=== PATIENT | female | born 1945 | race Caucasian/White ===

== ENCOUNTER 2021-08-02 15:12 | Inpatient (IN) | payer MEDICARE, OTHER ==
[~2021-08-02] VITALS: Ht 157.5 cm; Wt 71.7 kg
--- NOTE | 2021-08-02 15:40 | NUR ---
Patient ambulatory accompanied by daughter, complaints of fall today, pain on left shoulder and neck 12/27. No visible injuries/wound seen. Denies nausea/vomiting. Not in distress.
[2021-08-02] MEDS ORDERED: LEVO100T10 PO (15:41)
[2021-08-02] MEDS ORDERED: AMLO10TA59 PO (15:41)
[2021-08-02] MEDS ORDERED: ATENOLOL (15:42)
--- NOTE | 2021-08-02 15:45 | NUR ---
MD at bedside, medical screening exam in process.
[2021-08-02] MEDS ORDERED: ACETAMINOPHEN 325 MG TABLET ONE (15:56)
[2021-08-02] MEDS ORDERED: MORPHINE SULFATE 4 MG/1 ML DISP.SYRIN ONE ×2 (15:57→17:26)
[2021-08-02] MEDS ORDERED: ACETAMINOPHEN 325 MG TABLET PO ONE (16:00)
[2021-08-02] MEDS ORDERED: MORPHINE SULFATE 4 MG/1 ML DISP.SYRIN IM ONE (16:00)
--- NOTE | 2021-08-02 16:35 | NUR ---
MD Diaz at bedside, ongoing assessment and discussion RE admission.
--- NOTE | 2021-08-02 16:40 | NUR ---
MD tolliver was informed.
[2021-08-02] MEDS ORDERED: FENTANYL CITRATE 100 MCG/2 ML AMPUL IV ONE (16:45)
[2021-08-02 16:56] LABS: HEMATOCRIT 43.4 % (31.2-41.9); MEAN CORPUSCULAR VOLUME 85.9 fL (75.5-95.3); PLATELET COUNT (AUTO) 165 K/uL (179-408)
[2021-08-02] MEDS ORDERED: FENTANYL CITRATE 100 MCG/2 ML AMPUL ONE (16:56)
[2021-08-02 17:02] LABS: CREATININE 1.1 mg/dL (0.6-1.3); POTASSIUM 4.1 mmol/L (3.5-5.1)
--- NOTE | 2021-08-02 17:10 | NUR ---
Cut off pt's shirt and bra, family aware. Placed pt in hospital gown.
[2021-08-02] MEDS ORDERED: HYDROCODONE/APAP 5-325MG TABLET PO PRN (17:15)
[2021-08-02] MEDS ORDERED: MORPHINE SULFATE 2 MG/1 ML DISP.SYRIN IV PRN ×2 (17:15→18:45)
[2021-08-02] MEDS ORDERED: MORPHINE SULFATE 4 MG/1 ML DISP.SYRIN IV ONE (17:15)
[2021-08-02] MEDS ORDERED: ONDANSETRON 4 MG/2 ML VIAL IV PRN (17:15)
[2021-08-02] MEDS ORDERED: ACETAMINOPHEN 325 MG TABLET PO PRN (17:15)
[2021-08-02] MEDS ORDERED: MAGNESIUM HYDROXIDE 30 ML LIQUID UDC PO PRN ×2 (17:15→18:00)
[2021-08-02] MEDS ORDERED: ALPRAZOLAM 0.5 MG TABLET PO PRN (17:15)
--- NOTE | 2021-08-02 17:47 | NUR ---
Called for bed room 315 [facility].
--- NOTE | 2021-08-02 18:05 | NUR ---
Report called to NATASHA Kelley.
[2021-08-02] MEDS ORDERED: IV 1/2NS 1000 ML 1,000 ML IV PRN (18:15)
--- NOTE | 2021-08-02 18:17 | NUR ---
Patient still at CT scan, spoke to leinor said that he will transfer the patient to room [address] [place] [address] Admission papers gave to charge nurse in med surg unit. Patient recent vitals; BP-109/80 CA-51 RR-18 T-97F SPO2-98% RA PA-08/26.
--- NOTE | 2021-08-02 18:30 | NUR ---
pt brought up to room 315, family at bedside. pt on room air, no signs of distress, reports of pain to the left shoulder with fracture and possible fracture to the right, pending CT results. pt is A/Ox4 slovenian speaking, admitted to [facility]. pt has pimentel in place, IV on the right AC 20g patent and intact. bed low and locked, call light within reach, will continue to monitor.
--- NOTE | 2021-08-02 18:53 | NUR ---
photographic technician at bedside, will continue to monitor.
[2021-08-02 18:54] VITALS: BP 141/52
[2021-08-02] MEDS ORDERED: ALPR0.5T8 PO (18:56)
--- NOTE | 2021-08-02 19:00 | NUR ---
Received patient in bed, Humberto CESPEDES speaking with daughter Dakota at bedside. Pt's daughter will be sleeping overnight, rag room supervisor notified and acknowledged. Pt complains of shoulder pain of 8/10, PRN, medication will be given. With IV access patent and intact, started on 1/2 NS at 70 cc/hr. On room air. Patient denies chest pain, dizziness or SOB. No F/C in place. Pt has BRP, with minimum 1 person assistance. Per, Raul Hong will speak with patient and daughter for scheduled surgery tomorrow, consent has not been signed. Safety precautions in place. Will continue to monitor.
[2021-08-02] MEDS: OXYCODONE/APAP 5-325 MG TABLET PO PRN (19:57)
[2021-08-02 20:08] VITALS: BP 138/45
[2021-08-02] MEDS ORDERED: ZOLPIDEM 5 MG TABLET PO SCH (21:00)
--- NOTE | 2021-08-02 21:00 | NUR ---
Notified Dr. Carter that he hasn't seen patient and consent hasn't been signed. Family will need to speak to him.
--- NOTE | 2021-08-02 21:00 | NUR ---
Called Dr. Carter's office, paged him, He picked up and spoke to patient's daughter, Dakota and explained surgery to be done at 10am tomorrow. Scheduled surgery is Left Shoulder Arthroplasty. Procedure consent and blood transfusion consent have been signed and attached to chart.
--- NOTE | 2021-08-02 21:30 | NUR ---
No reply from Raul DAMIAN. Called his office. Addendum: 08/03/21 at 9810 by LEVY MELENDREZ RN Incorrect record. Please disregard.
--- NOTE | 2021-08-02 21:35 | NUR ---
Collected urine specimen and sent to lab.
[2021-08-02 23:34] LABS: *BLOOD, URINE NEGATIVE (NEGATIVE); *CLARITY,URINE CLEAR (CLEAR); *COLOR,URINE YELLOW (YELLOW); *KETONES,URINE 1+ (NEGATIVE); *UROBILINOGEN,URINE 0.2 E.U./dl (NORMAL); LEUKOCYTE ESTERASE ,URINE TRACE (NEGATIVE); NITRITE, URINE NEGATIVE (NEGATIVE); PH,URINE 5.5 (5.0-8.0); UGLUCOSE NEGATIVE (NEGATIVE)
[2021-08-02 23:39] LABS: *BILIRUBIN,URIN 1+ (NEGATIVE)
[2021-08-03 04:26] VITALS: BP 133/45
--- NOTE | 2021-08-03 04:26 | NUR ---
Patient complained of pain located at the left shoulder, PRN Morphine 2mg/1ml, given as ordered. Will continue to monitor.
--- NOTE | 2021-08-03 05:16 | NUR ---
Patient still complained of pain, will give PRN Percocet, as ordered. Will continue to monitor.
[2021-08-03] MEDS: OXYCODONE/APAP 5-325 MG TABLET PO PRN (05:18)
[2021-08-03 05:33] LABS: MEAN CORPUSCULAR HEMOGLOBIN 29.6 uug (24.7-32.8)
[2021-08-03 05:38] LABS: CARBON DIOXIDE 26 mmol/L (21-32); CHLORIDE 107 mmol/L (98-107); CREATININE 1.2 mg/dL (0.6-1.3); GLUCOSE 156 mg/dL (74-106); POTASSIUM 3.6 mmol/L (3.5-5.1); UREA NITROGEN, BLOOD 20 mg/dL (7-18)
[2021-08-03 05:40] LABS: HEMATOCRIT 37.9 % (31.2-41.9); MEAN CORPUSCULAR VOLUME 86.6 fL (75.5-95.3); PLATELET COUNT (AUTO) 131 K/uL (179-408)
[2021-08-03 05:44] LABS: ALANINE AMINOTRANSFERASE 37 U/L (14-59); ALKALINE PHOSPHATASE 85 U/L (50-136); ASPARTATE AMINOTRANSFERASE 15 U/L (15-37); BILIRUBIN,TOTAL 2.7 mg/dL (0.2-1.0); PHOSPHOROUS 3.3 mg/dL (2.5-4.9); TOTAL PROTEIN, SERUM 5.9 g/dL (6.4-8.2)
--- NOTE | 2021-08-03 06:35 | NUR ---
Patient slept intermittently through the night. Pre-operative checklist done. IV access patent and intact, running 1/2 NS running at 70 cc/hr. Patient's pain reduced, no acute distress noted at this time. Safety precautions maintained. Will endorse to day shift accordingly.
[2021-08-03 07:28] LABS: BACTERIA,URINE NONE SEEN /HPF (NONE SEEN); RBC,URINE NONE SEEN /HPF (0-3); SQUAMOUS EPITHELIAL CELL,UR NONE SEEN /HPF (NONE SEEN)
[2021-08-03 07:29] LABS: MUCUS,URINE FEW /LPF (0-FEW)
[2021-08-03 07:41] LABS: URINE AMORPHOUS URATE FEW /HPF
[2021-08-03] MEDS ORDERED: VANCOMYCIN 1000 MG VIAL ONE (08:51)
[2021-08-03 08:54] VITALS: BP 134/43
[2021-08-03] MEDS: AMLODIPINE 10 MG TABLET PO SCH (08:55)
[2021-08-03] MEDS ORDERED: ATENOLOL 50 MG TABLET PO SCH ×2 (09:00)
[2021-08-03] MEDS ORDERED: FENTANYL CITRATE 100 MCG/2 ML AMPUL ONE (09:18)
[2021-08-03] MEDS ORDERED: HYDROMORPHONE 2 MG/1 ML DISP.SYRIN ONE (09:19)
[2021-08-03] MEDS ORDERED: MIDAZOLAM HCL 2 MG/2 ML VIAL ONE (09:19)
[2021-08-03] MEDS ORDERED: ROCURONIUM BROMIDE 50 MG/5 ML VIAL ONE (09:20)
[2021-08-03] MEDS ORDERED: CEFAZOLIN 1 G VIAL ONE (09:24)
--- NOTE | 2021-08-03 09:45 | NUR ---
TO SURGERY VIA BED. FAMILY AT BEDSIDE. DR. YEAGER HERE TO CLEAR PATIENT FOR SURGERY.
[2021-08-03] MEDS ORDERED: ALPRAZOLAM 0.5 MG TABLET PO PRN (12:00)
[2021-08-03] MEDS ORDERED: ATOR20TA PO (12:06)
[2021-08-03] MEDS ORDERED: GLYCOPYRROLATE 0.2 MG/ML VIAL IJ ONE (12:53)
[2021-08-03] MEDS ORDERED: METOCLOPRAMIDE HCL 10 MG/2 ML VIAL IV ONE (12:53)
[2021-08-03] MEDS ORDERED: ONDANSETRON 4 MG/2 ML VIAL IV ONE (12:53)
[2021-08-03] MEDS ORDERED: NEOSTIGMINE METHYLSULFATE 10 MG/10 ML VIAL IM ONE (12:53)
[2021-08-03] MEDS ORDERED: SEVOFLURANE 250 ML BOTTLE IH ONE (12:53)
[2021-08-03] MEDS ORDERED: LIDOCAINE-MPF 2% 5 ML VIAL IJ ONE (12:53)
[2021-08-03] MEDS ORDERED: CEFAZOLIN 1 G VIAL IM ONE (12:53)
[2021-08-03] MEDS ORDERED: PROPOFOL 200 MG/20 ML BOTTLE IV ONE (12:53)
[2021-08-03] MEDS ORDERED: HYDROCODONE/APAP 10-325 MG TABLET PO PRN (14:15)
--- NOTE | 2021-08-03 14:35 | NUR ---
RECEIVED FROM . A&O X 3. REQUESTING MED IV FOR PAIN. WILL GIVE MED. RACHEL. FAMILY AT BEDSIDE.
[2021-08-03] MEDS: MORPHINE SULFATE 4 MG/1 ML DISP.SYRIN IV PRN ×2 (14:36→17:51)
[2021-08-03] MEDS: POTASSIUM CHLORIDE 20 MEQ in IV D5 1/2 NS 1000 ML 1,000 ML IV PRN (14:37)
[2021-08-03] MEDS: CEFAZOLIN 1 G in IV DEXTROSE 5% 50 ML IV SCH (18:23)
[2021-08-03] MEDS ORDERED: OXYCODONE/APAP 5-325 MG TABLET PO PRN (19:00)
[2021-08-03] MEDS ORDERED: OXYCODONE/APAP 5-325 MG TABLET PO ONE (19:45)
--- NOTE | 2021-08-03 19:45 | NUR ---
Patient resting in bed . Awake alertx4.s/p left shoulder surgery with dressing clean and dry. Left arm with sling on.Able to wiggle fingers. Ice pack applied on the surgical site.O2 at 2LPM via NC .O2 sat at 98 %.Iv patent and intact on right FA 20g patent and intact with IVF infusing well.NSr on tele. Daughter at bedside.Call light with in reach.
[2021-08-03] MEDS: ATORVASTATIN 20 MG TABLET PO SCH (20:30)
[2021-08-03 20:44] VITALS: BP 169/57
[2021-08-03] MEDS ORDERED: ENOXAPARIN SODIUM 40 MG/0.4 ML DISP.SYRIN SQ SCH (21:00)
[2021-08-03 21:45] VITALS: BP 150/59
[2021-08-04] MEDS: CEFAZOLIN 1 G in IV DEXTROSE 5% 50 ML IV SCH (02:48)
[2021-08-04 04:00] VITALS: BP 134/54
[2021-08-04] MEDS: LEVOTHYROXINE SODIUM 100 MCG TABLET PO SCH (06:12)
[2021-08-04] MEDS: POTASSIUM CHLORIDE 20 MEQ in IV D5 1/2 NS 1000 ML 1,000 ML IV PRN (06:15)
[2021-08-04 07:14] LABS: HEMATOCRIT 33.6 % (31.2-41.9); MEAN CORPUSCULAR HEMOGLOBIN 29.9 uug (24.7-32.8); MEAN CORPUSCULAR VOLUME 87.1 fL (75.5-95.3); PLATELET COUNT (AUTO) 115 K/uL (179-408)
--- NOTE | 2021-08-04 07:20 | NUR ---
AWAKE ALERT AND ORIENTED NO S/S OF PAIN OR DISCOMFORTS AT THIS TIME LEFT SHOULDER SLING IS INTACT WITH ADEQUATE CIRCULATION AT THIS TIME ON O2 ON AND OFF PATIENT IS NOT WANTING TO USE O2 SATS HAS BEEN ADEQUATE TELE IS SR CALL LIGHTS AND PERSONAL BELONGINGS ARE WITHIN EASY REACH WILL CONTINUE TO OBSERVE
[2021-08-04 07:39] LABS: BILIRUBIN,DIRECT 0.6 mg/dL (0.0-0.2); CREATININE 1.1 mg/dL (0.6-1.3); POTASSIUM 3.7 mmol/L (3.5-5.1); TOTAL PROTEIN, SERUM 5.7 g/dL (6.4-8.2)
[2021-08-04] MEDS: ATENOLOL 25 MG TABLET PO SCH (09:10)
[2021-08-04] MEDS: AMLODIPINE 10 MG TABLET PO SCH (09:12)
[2021-08-04] MEDS: ENOXAPARIN SODIUM 40 MG/0.4 ML DISP.SYRIN SQ SCH (09:13)
[2021-08-04] MEDS: MIRALAX 17 GM POWD.PACK PO SCH (09:18)
[2021-08-04] MEDS: DOCUSATE SODIUM 100 MG CAPSULE PO SCH ×2 (09:18→16:00)
[2021-08-04] MEDS: OXYCODONE/APAP 5-325 MG TABLET PO PRN ×3 (09:19→21:12)
--- NOTE | 2021-08-04 09:20 | NUR ---
PATIENT C/O PAIN LEFT ARM MEDICATED WITH PERCOCET ORDERED MADE COMFORTABLE PATIENT IS FOR PHYSICAL THERAPY IN A LITTLE WHILE ORDERED.WILL CONTINUE BTO OBSERVE.
--- NOTE | 2021-08-04 11:30 | NUR ---
SEEN BY THE PHYSICAL THERAPY FOR AMBULATION WITH [facility].STATED FEELS COMFORTABLE AT THIS TIME.
[2021-08-04 12:00] VITALS: BP_SYST 118; BP_SYST 119; BP_DIAS 46; BP_DIAS 65
--- NOTE | 2021-08-04 15:55 | NUR ---
C/O PAIN LEFT ARM MEDICATED WITH PERCOCET ORDERED MADE COMFORTABLE CIRCULATION REMAINS ADEQUATE WILL CONTINUE TO OBSERVE.
[2021-08-04 16:51] VITALS: BP 122/78
--- NOTE | 2021-08-04 19:40 | NUR ---
Patient awake alert, family at bedside, no sob no chest pain, no complain of pain, left arm on the sling with dressing intact, tele monitor sinus rhythm, cont to monitor.
[2021-08-04 20:00] VITALS: BP 139/56
[2021-08-04] MEDS: ATORVASTATIN 20 MG TABLET PO SCH (21:12)
--- NOTE | 2021-08-04 23:15 | NUR ---
Patient unable to sleep, restless, family request for anxiety meds/sleep, given xanax 0.5mg po cont to monitor.
[2021-08-05] MEDS: ACETAMINOPHEN 325 MG TABLET PO PRN (00:21)
--- NOTE | 2021-08-05 00:21 | NUR ---
Patient has low grade temp 100.7, hr 110, given tylenol 650mg po plus cooling measure, ice pack on left should also, put oxygen at 2lpm for assist, sat 94 cont to monitor.
--- NOTE | 2021-08-05 01:50 | NUR ---
Patient asleep, temp 99.6, monitor sinus rhythm 87, cont to monitor.
[2021-08-05 04:00] VITALS: BP 128/53
[2021-08-05] MEDS: LEVOTHYROXINE SODIUM 100 MCG TABLET PO SCH (06:36)
--- NOTE | 2021-08-05 07:06 | NUR ---
Patient awake, verbally responsive, tele monitor sinus rhythm, no complain of pain, afebrile, ice pack place on left shoulder, Left shoulder with sling, family at bedside, cont to monitor.
--- NOTE | 2021-08-05 07:30 | NUR ---
PATIENT SEEN AND EXAMINED BY DR ESCAMILLA WITH NEW ORDERS AND NOTED SHE IS ALERT AND ORIENTED WITH SOME LANGUAGE BARRIERS HAS FAMILY MEMBER ASSISTING NEEDED.LEFT ARM WITH DRESSING AND SLING INTACT WITH ADEQUATE CIRCULATION CALL LIGHT AND PERSOANL BELONGINGS ARE WITHIN EASY REach at this time will continue to observe.
[2021-08-05] MEDS ORDERED: LACTULOSE 20 G/30 ML LIQUID UDC PO ONE (08:00)
[2021-08-05 08:44] LABS: HEMATOCRIT 32.9 % (31.2-41.9); MEAN CORPUSCULAR VOLUME 87.1 fL (75.5-95.3); PLATELET COUNT (AUTO) 110 K/uL (179-408)
[2021-08-05] MEDS: MIRALAX 17 GM POWD.PACK PO SCH (08:50)
[2021-08-05] MEDS: DOCUSATE SODIUM 100 MG CAPSULE PO SCH ×2 (08:50→16:30)
[2021-08-05] MEDS: ATENOLOL 25 MG TABLET PO SCH (08:51)
[2021-08-05] MEDS: AMLODIPINE 10 MG TABLET PO SCH (08:51)
[2021-08-05] MEDS: OXYCODONE/APAP 5-325 MG TABLET PO PRN ×2 (08:59→19:02)
--- NOTE | 2021-08-05 09:00 | NUR ---
PATIENT PRE MEDICATED WITH PERCOCET FOR PHYSICAL THERAPY WHICH IS ABOUT TO START IN ABOUT ONE HOUR WILL CHECK EFFECTIVENESS.
[2021-08-05 09:01] LABS: POTASSIUM 3.9 mmol/L (3.5-5.1)
[2021-08-05] MEDS: ENOXAPARIN SODIUM 40 MG/0.4 ML DISP.SYRIN SQ SCH (09:13)
[2021-08-05 09:16] LABS: BILIRUBIN,TOTAL 5.9 mg/dL (0.2-1.0); TOTAL PROTEIN, SERUM 5.6 g/dL (6.4-8.2)
[2021-08-05 09:24] LABS: THYROID STIMULATING HORMONE 0.263 mIU/mL (0.358-3.740)
[2021-08-05 10:37] LABS: *BILIRUBIN,URIN 1+ (NEGATIVE); *BLOOD, URINE NEGATIVE (NEGATIVE); *CLARITY,URINE CLEAR (CLEAR); *COLOR,URINE YELLOW (YELLOW); *KETONES,URINE NEGATIVE (NEGATIVE); *UROBILINOGEN,URINE 0.2 E.U./dl (NORMAL); LEUKOCYTE ESTERASE ,URINE TRACE (NEGATIVE); NITRITE, URINE POSITIVE (NEGATIVE); UGLUCOSE NEGATIVE (NEGATIVE)
[2021-08-05 11:40] VITALS: BP 105/45
--- NOTE | 2021-08-05 12:00 | NUR ---
IV ANTIBIOTICS STARTED AT THIS TIME ORDERED WITH NO ADVERSE OR ALLERGIC REACTIONS AT THIS TIME LEFT ARM WITH SLING INTACT WITH ADEQUATE CIRCULATION MADE COMFORTABLE WILL CONTINUE TO OBSERVE
[2021-08-05] MEDS: CEFTRIAXONE 1 G in IV DEXTROSE 5% 50 ML IV SCH (12:33)
[2021-08-05 15:02] LABS: RBC,URINE 0-3 /HPF (0-3)
[2021-08-05 15:03] LABS: BACTERIA,URINE FEW /HPF (NONE SEEN); SQUAMOUS EPITHELIAL CELL,UR FEW /HPF (NONE SEEN)
[2021-08-05 15:04] LABS: CALCIUM OXALATE CRYSTALS,UR FEW /HPF (NONE SEEN)
[2021-08-05 16:00] VITALS: BP 114/46
--- NOTE | 2021-08-05 18:00 | NUR ---
PATIENT FINALLY HAD A BOWEL MOVEMENT AFTER ALL THE LAXATIVES STATED FEELS BETTER AT THIS TIME.
[2021-08-05] MEDS ORDERED: NALOXONE HCL 0.4 MG/ML AMPUL IV PRN (19:45)
[2021-08-05 20:00] VITALS: BP_SYST 131; BP_SYST 174; BP_DIAS 52; BP_DIAS 69
--- NOTE | 2021-08-05 20:00 | NUR ---
Patient alert, no sob no chest pain, tele monitor sinus rhythm, room air sat 96%, patient has elevated temp 100.3 orally, given cooling measure, received Percocet at earlier, family at bedside. Patient was kept comfortable, cont to monitor.
--- NOTE | 2021-08-05 20:45 | NUR ---
Patient awake, complain of uncomfortable pain on left shoulder, continue ice pack placed on left shoulder for comfort and pain. recheck bp 131/52, temp 100.3, vomit clear liquid fluids after family gave water, will medicate for nausea and vomiting. cont to monitor. Patient on IV abx for UTI, rendered good keith care, no s/s of distress. cont to monitor.
[2021-08-05] MEDS: ONDANSETRON 4 MG/2 ML VIAL IV PRN (21:08)
--- NOTE | 2021-08-05 21:10 | NUR ---
Patient has episode of vomiting approx 100cc vomitus, clear liquid, given Zofran IV for nausea and vomiting, continue cooling measures, no s/s of distress.
[2021-08-05] MEDS: ATORVASTATIN 20 MG TABLET PO SCH (22:13)
[2021-08-05] MEDS: OXYCODONE HCL 20 MG TAB.SR.12H PO SCH (22:14)
[2021-08-06] MEDS: REMEDY ESSENTIAL ZINC PASTE 113 GM TOP SCH ×3 (00:56→20:45)
[2021-08-06] MEDS: OXYCODONE/APAP 5-325 MG TABLET PO PRN ×2 (02:16→17:00)
--- NOTE | 2021-08-06 02:27 | NUR ---
Patient/family refused 0000 vitals, vital taken now BP 136/65 HR 98, temp 99.8 oral, complain of left shoulder pain from 5 going thru 8, request for pain meds, given Percocet 2 tabs as ordered, cont ice pack on left shoulder. no furthe repisode of vomiting, cont to monitor.
[2021-08-06 02:32] VITALS: BP 136/65
[2021-08-06 04:00] VITALS: BP 106/44
[2021-08-06 06:49] LABS: HEMATOCRIT 31.1 % (31.2-41.9); MEAN CORPUSCULAR HEMOGLOBIN 30.1 uug (24.7-32.8); PLATELET COUNT (AUTO) 131 K/uL (179-408)
[2021-08-06] MEDS: LEVOTHYROXINE SODIUM 75 MCG TABLET PO SCH (06:54)
[2021-08-06 07:18] LABS: CREATININE 0.9 mg/dL (0.6-1.3); MAGNESIUM 1.8 mg/dL (1.8-2.4); PHOSPHOROUS 2.3 mg/dL (2.5-4.9); POTASSIUM 3.8 mmol/L (3.5-5.1)
[2021-08-06] MEDS: OXYCODONE HCL 20 MG TAB.SR.12H PO SCH ×2 (08:47→20:45)
[2021-08-06] MEDS: DOCUSATE SODIUM 100 MG CAPSULE PO SCH ×2 (08:47→16:58)
[2021-08-06] MEDS: MIRALAX 17 GM POWD.PACK PO SCH (08:48)
[2021-08-06] MEDS: ATENOLOL 25 MG TABLET PO SCH (08:54)
[2021-08-06] MEDS: ENOXAPARIN SODIUM 40 MG/0.4 ML DISP.SYRIN SQ SCH (08:54)
[2021-08-06] MEDS ORDERED: AMLODIPINE 5 MG TABLET PO SCH (09:00)
[2021-08-06 09:36] LABS: BILIRUBIN,DIRECT 1.5 mg/dL (0.0-0.2); BILIRUBIN,TOTAL 5.3 mg/dL (0.2-1.0); TOTAL PROTEIN, SERUM 5.5 g/dL (6.4-8.2)
[2021-08-06 11:01] VITALS: BP 130/48
--- NOTE | 2021-08-06 11:05 | NUR ---
Pt is a/o x 4, Dominican speaking. No fever this morning. Rapid flu and rapid covid test obtained. Results are negative. Morning amlodipine and tenormin held due to decreased BP of 107/43, HR 81. Pt participated with PT, able to ambulate with one person assist. Family currently at bedside. Comfort measures provided, call light within reach. Will continue to monitor.
[2021-08-06] MEDS: CEFTRIAXONE 1 G in IV DEXTROSE 5% 50 ML IV SCH (11:41)
[2021-08-06] MEDS ORDERED: POTASSIUM PHOSPHATE MM 7.5 MMOL in IV NORMAL SALINE 97.5 ML IV ONE (12:00)
[2021-08-06 15:08] VITALS: BP 107/43
[2021-08-06] MEDS: ENSURE ENLIVE (VAN) 240 ML LIQUID PO SCH (16:59)
--- NOTE | 2021-08-06 17:05 | NUR ---
Pt is awake in bed, no complaint of pain at this time. Pt worked with PT/OT today, ambulatory with assist, compliant with care. Family currently at bedside, pt able to make needs known, will continue to monitor.
--- NOTE | 2021-08-06 19:30 | NUR ---
RECEIVED PT AWAKE, ALERT AND ORIENTEDX4. PY IN NO ACUTE DISTRESS. IV INTACT.PT ON SINUS RHYTHM. FAMILY AT BEDSIDE. SAFETY AND COMFORT PROVIDED. WILL CONTINUE TO MONITOR.
[2021-08-06] MEDS: ATORVASTATIN 20 MG TABLET PO SCH (20:44)
[2021-08-06 20:57] VITALS: BP 144/53
[2021-08-07] VITALS: BP 130/52
[2021-08-07] MEDS: OXYCODONE/APAP 5-325 MG TABLET PO PRN ×4 (00:19→18:04)
--- NOTE | 2021-08-07 01:44 | NUR ---
PT GIVEN PERCOCET 5-325 MG PRN AT 0019H. AFTER AN HOUR PT PAIN SUBSIDED BUT STILL HAS PAIN. WILL CONTINUE TO MONITOR.
[2021-08-07 04:23] VITALS: BP 117/50
[2021-08-07] MEDS: LEVOTHYROXINE SODIUM 75 MCG TABLET PO SCH (06:01)
--- NOTE | 2021-08-07 06:28 | NUR ---
at 0628H Percocet prn given to pt for left shoulder pain. Pt tolerated it well.Will continue to monitor.
--- NOTE | 2021-08-07 06:29 | NUR ---
Pt in no acute distress. Pt IV intact.Prescribed medication given and pt tolerated it well. Pt dressing intact and no signs of bleeding noted.Family at bedside. PT vital signs within normal limit. Safety and comfort provided. All needs are met. Will endorse to incoming nurse for continuity of care.
--- NOTE | 2021-08-07 06:58 | NUR ---
paged Dr. Carter for followup in regards to wound dressing order status of pt.
[2021-08-07 07:34] LABS: HEMATOCRIT 30.9 % (31.2-41.9); MEAN CORPUSCULAR HEMOGLOBIN 30.3 uug (24.7-32.8); MEAN CORPUSCULAR VOLUME 85.6 fL (75.5-95.3); PLATELET COUNT (AUTO) 166 K/uL (179-408)
[2021-08-07 07:41] LABS: BILIRUBIN,DIRECT 2.1 mg/dL (0.0-0.2); MAGNESIUM 1.9 mg/dL (1.8-2.4); PHOSPHOROUS 2.6 mg/dL (2.5-4.9); POTASSIUM 3.8 mmol/L (3.5-5.1); TOTAL PROTEIN, SERUM 5.7 g/dL (6.4-8.2)
[2021-08-07 08:00] VITALS: BP 115/39
[2021-08-07] MEDS: MIRALAX 17 GM POWD.PACK PO SCH (09:17)
[2021-08-07] MEDS: DOCUSATE SODIUM 100 MG CAPSULE PO SCH ×2 (09:17→16:22)
[2021-08-07] MEDS: OXYCODONE HCL 20 MG TAB.SR.12H PO SCH ×2 (09:18→20:48)
[2021-08-07] MEDS: ENSURE ENLIVE (VAN) 240 ML LIQUID PO SCH ×2 (09:18→16:20)
[2021-08-07] MEDS: REMEDY ESSENTIAL ZINC PASTE 113 GM TOP SCH ×2 (09:18→21:20)
[2021-08-07] MEDS: ENOXAPARIN SODIUM 40 MG/0.4 ML DISP.SYRIN SQ SCH (09:19)
--- NOTE | 2021-08-07 09:45 | NUR ---
Per Dr. Carter, Change surgical dressing as needed with mepilex or optifoam dressing.
--- NOTE | 2021-08-07 11:36 | NUR ---
Pt had complaint of nausea and emesis x 1, administered zofran PRN. Will continue to monitor.
[2021-08-07 12:00] VITALS: BP 129/54
[2021-08-07] MEDS: ONDANSETRON 4 MG/2 ML VIAL IV PRN (12:30)
[2021-08-07] MEDS: PIPERACILLIN SODIUM/TAZOBACTAM 3.375 G in IV DEXTROSE 5% 50 ML IV SCH ×2 (14:17→21:53)
--- NOTE | 2021-08-07 15:06 | NUR ---
Pt is scheduled for MRCP without contrast tomorrow morning, picker tender time 0830 with [facility] ambulance transport. MRI checklist completed and signed for. Family and pt made aware of transport time.
[2021-08-07 16:00] VITALS: BP 114/36
[2021-08-07 20:00] VITALS: BP 119/41
[2021-08-07] MEDS: ATORVASTATIN 20 MG TABLET PO SCH (20:48)
--- NOTE | 2021-08-07 21:55 | NUR ---
Patient in bed awake and able to make needs known.On RA in no acute distress noted.NSr on Tele.IV patent and intact on right FA .Adm.IV ATB as ordered. NO a/r noted.Patient c/o left shoulder pain .S/p surgery.Surgical site with dressing intact.Clean and dry. Routine Pain med given as ordered.Applied ice pack on surgical site. Assisted patient to bathroom. Voided well.Family member at bedside.Call light with in reach. Will continue to monitor.
[2021-08-08] VITALS: BP 118/55
[2021-08-08 04:00] VITALS: BP 121/49
[2021-08-08] MEDS: PIPERACILLIN SODIUM/TAZOBACTAM 3.375 G in IV DEXTROSE 5% 50 ML IV SCH ×3 (05:21→21:14)
[2021-08-08] MEDS: LEVOTHYROXINE SODIUM 75 MCG TABLET PO SCH (06:22)
[2021-08-08 06:46] LABS: HEMATOCRIT 32.1 % (31.2-41.9); MEAN CORPUSCULAR HEMOGLOBIN 29.8 uug (24.7-32.8); MEAN CORPUSCULAR VOLUME 86.6 fL (75.5-95.3); PLATELET COUNT (AUTO) 157 K/uL (179-408)
[2021-08-08 07:00] LABS: BILIRUBIN,TOTAL 5.9 mg/dL (0.2-1.0); CREATININE 1.1 mg/dL (0.6-1.3); PHOSPHOROUS 2.7 mg/dL (2.5-4.9); POTASSIUM 3.9 mmol/L (3.5-5.1); TOTAL PROTEIN, SERUM 5.8 g/dL (6.4-8.2)
--- NOTE | 2021-08-08 07:30 | NUR ---
Awake, alert, oriented x 4. On moderate high back rest. NPO maintained for MRCP
[2021-08-08 07:46] LABS: BILIRUBIN,DIRECT 2.6 mg/dL (0.0-0.2)
[2021-08-08 07:48] LABS: BILIRUBIN,TOTAL 5.9 mg/dL (0.2-1.0)
[2021-08-08] MEDS: MIRALAX 17 GM POWD.PACK PO SCH (08:43)
[2021-08-08] MEDS: OXYCODONE/APAP 5-325 MG TABLET PO PRN (08:43)
[2021-08-08] MEDS: ENOXAPARIN SODIUM 40 MG/0.4 ML DISP.SYRIN SQ SCH (08:53)
[2021-08-08] MEDS: ENSURE ENLIVE (VAN) 240 ML LIQUID PO SCH ×2 (08:57→17:00)
[2021-08-08] MEDS: REMEDY ESSENTIAL ZINC PASTE 113 GM TOP SCH ×2 (08:58→21:14)
[2021-08-08] MEDS: DOCUSATE SODIUM 100 MG CAPSULE PO SCH ×2 (08:58→17:00)
--- NOTE | 2021-08-08 09:00 | NUR ---
To [facility] via gurney/ambulance for MRCP
--- NOTE | 2021-08-08 10:20 | NUR ---
Back from [facility]. MRCP done. Sponge bath given. Repositioned in bed comfortably. Refused food at this time. Juice and water given.
[2021-08-08 12:06] VITALS: BP 136/40
--- NOTE | 2021-08-08 14:00 | NUR ---
Sitting on the wheelchair after PT.
[2021-08-08] MEDS: ONDANSETRON 4 MG/2 ML VIAL IV PRN (14:41)
--- NOTE | 2021-08-08 14:45 | NUR ---
Nauseated, Zofran IV given
[2021-08-08 16:06] VITALS: BP 139/55
[2021-08-08] MEDS ORDERED: ONDANSETRON 4 MG/2 ML VIAL IV PRN (18:00)
--- NOTE | 2021-08-08 18:09 | NUR ---
Still nauseated, ice chips given. Refused to eat dinner.
[2021-08-08] MEDS: IV D5 1/2 NS 1000 ML 1,000 ML IV PRN (18:43)
--- NOTE | 2021-08-08 18:58 | NUR ---
IVF started as ordered. Zofran IV given. Endorsed for further care
--- NOTE | 2021-08-08 19:35 | NUR ---
PATIENT ALERT ORIENTED, NO SOB NO CHEST PAIN, TELE MONITOR SINUS RHYTHM, NO COMPLAIN OF PAIN AT THIS TIME, PATIENT AMBULATORY WITH ASSIST, LEFT ARM WITH SLING, CONT ON ICE PACK TO RELIEVE PAIN AND SWELLING, KEPT ELEVATED, CONT TO MONITOR.
[2021-08-08 20:00] VITALS: BP 148/63
[2021-08-08] MEDS: ATORVASTATIN 20 MG TABLET PO SCH (21:14)
--- NOTE | 2021-08-09 | NUR ---
V/S NOT DONE, FAMILY REFUSED TO WAKE UP THE PATIENT, CONT TO MONITOR.
[2021-08-09] MEDS: ZOLPIDEM 5 MG TABLET PO PRN ×2 (02:29→21:39)
[2021-08-09] MEDS: ACETAMINOPHEN 325 MG TABLET PO PRN ×3 (02:32→21:39)
--- NOTE | 2021-08-09 03:00 | NUR ---
PATIENT REQUEST SLEEPING MEDS, AND TYLENOL FOR PAIN AND DISCOMFORT AND EFFECTIVE RESULTS, PATIENT WENT TO SLEEP, NO S/S OF PAIN, TELE MONITOR SINUS RHYTHM AT THIS TIME, CONT TO MONITOR.
[2021-08-09] MEDS: PIPERACILLIN SODIUM/TAZOBACTAM 3.375 G in IV DEXTROSE 5% 50 ML IV SCH (05:11)
[2021-08-09 06:09] LABS: MEAN CORPUSCULAR HEMOGLOBIN 29.4 uug (24.7-32.8); MEAN CORPUSCULAR VOLUME 85.6 fL (75.5-95.3); PLATELET COUNT (AUTO) 195 K/uL (179-408)
[2021-08-09 06:20] LABS: BILIRUBIN,TOTAL 4.9 mg/dL (0.2-1.0); PHOSPHOROUS 2.5 mg/dL (2.5-4.9); POTASSIUM 3.4 mmol/L (3.5-5.1); TOTAL PROTEIN, SERUM 5.6 g/dL (6.4-8.2)
--- NOTE | 2021-08-09 06:52 | NUR ---
PATIENT IN DEEP SLEEP, NO S/S OF PAIN NOR DISCOMFORT, FAMILY REFUSED TO WAKE UP THE PATIENT FOR MEDS OR VITAL SIGNS, ENDORSED TO NEXT SHIFT.
--- NOTE | 2021-08-09 08:00 | NUR ---
RECEIVED PATIENT IN BED AWAKE ALERT AND ORIENTED WITH DAUGHTER AT HER BEDSIDE DENIES PAIN OR DISCOMFORTS AT THIS TIME ON ROOM AIR WIT NO SHORTNESS OF BREATH LEFT ARM WITH SLING INTACT WITH ADEQUATE CIRCULATION AT THIS TIME IVF IN PROGRESS CALL LIGHT AND PERSONAL BELONGINGS ARE WITHIN EASY REACH WILL CONTINUE TO OBSERVE..
[2021-08-09] MEDS: LEVOTHYROXINE SODIUM 75 MCG TABLET PO SCH (08:27)
[2021-08-09] MEDS: MIRALAX 17 GM POWD.PACK PO SCH (09:05)
[2021-08-09] MEDS: DOCUSATE SODIUM 100 MG CAPSULE PO SCH ×2 (09:06→16:11)
[2021-08-09] MEDS: ENOXAPARIN SODIUM 40 MG/0.4 ML DISP.SYRIN SQ SCH (09:07)
[2021-08-09] MEDS: ENSURE ENLIVE (VAN) 240 ML LIQUID PO SCH ×2 (09:29→16:11)
[2021-08-09] MEDS: REMEDY ESSENTIAL ZINC PASTE 113 GM TOP SCH ×2 (09:32→20:49)
[2021-08-09] MEDS: IV D5 1/2 NS 1000 ML 1,000 ML IV PRN (11:09)
--- NOTE | 2021-08-09 12:10 | NUR ---
STILL AWAITING FOR [facility] TO CALL FOR BED AVAILABILITY TO TRANSFER PATIENT.
[2021-08-09] MEDS ORDERED: POTASSIUM CHLORIDE 20 MEQ TAB.PRT.SR PO ONE (12:45)
[2021-08-09 12:58] VITALS: BP 159/60
--- NOTE | 2021-08-09 13:20 | NUR ---
PATIENT REQUESTED FOR TYLENOL GIVEN ORDERED FOR INCISIONAL PAIN AND EFFECTIVE.
[2021-08-09] MEDS: AMLODIPINE 5 MG TABLET PO SCH (13:21)
--- NOTE | 2021-08-09 13:42 | NUR ---
PATIENTS DAUGHTER REFUSED FOR PATIENT TO HAVE ZOSYN ORDERED STATED THAT THEY WERE TOLD THAT SHE SHOULD NOT HAVE ZOSYN DR LARSEN NOTIFIED STATED [place] WILL INVITE THE INFECTIOUS DISEASE TO SEE PATIENT.
--- NOTE | 2021-08-09 13:45 | NUR ---
DR PRASONS NOTIFIED THAT PATIENT HAS POOR VEINOUS ACCESS WITH MULTIPLE ATTEMPTS WITH ORDER TO INSERT MID LINE AND NOTED.
[2021-08-09] MEDS ORDERED: PIPERACILLIN SODIUM/TAZOBACTAM 3.375 G in IV DEXTROSE 5% 100 ML IV SCH (14:00)
[2021-08-09] MEDS ORDERED: POTASSIUM CHLORIDE 50 ML IV SCH (16:00)
[2021-08-09 16:18] VITALS: BP 151/57
--- NOTE | 2021-08-09 16:43 | NUR ---
MIDLINE INSERTED TO HER RIGHT UPPER ARM GAUGE 20 TOLERATED WELL. POTASSIUM LEVEL IS 3.4 AND HAS AN ORDER FOR 20MEQ POTASSIUM STARTED AT THIS TIME.
[2021-08-09] MEDS ORDERED: POTASSIUM CHLORIDE 10 MEQ, LIDOCAINE-MPF 1% 1 ML in IV DEXTROSE 5% 100 ML IV SCH (17:45)
--- NOTE | 2021-08-09 17:53 | NUR ---
DR BABIN GI HERE TO SEE PATIENT WITH NEW LAB ORDERS AND NOTED.
[2021-08-09] MEDS ORDERED: CEFTAZIDIME 1 G in IV DEXTROSE 5% 50 ML IV SCH (18:45)
--- NOTE | 2021-08-09 18:58 | NUR ---
SPOKE WITH LETICIA FROM [facility] RE NM HEPATOBIL IMAGING WITH [facility] AND SHE STATED THAT PATIENT HAS TO BE NPO AFTER MIDNIGHT NO CAFFEINE AND NO OPIOIDS CONSCENT OBTAINED AND DOCUMENTED.
--- NOTE | 2021-08-09 19:15 | NUR ---
Received patient on bed, awake, not in respiratory distress, no complaint of pain at this time, with dressing intact at left shoulder, with ongoing IVF D5 1/2 NS 1L at 70cc/hr via midline at rigt upper arm g-20. Safety precautions provided, call light placed within reach.
--- NOTE | 2021-08-09 20:15 | NUR ---
Received call from Margo of [facility] regarding the procedure Nuclear Hepatobilliary imaging that [facility] is not available for tomorrow. Dr Whitney notified, he said to cancel the procedure tomorrow. Patient`s daughter informed.
[2021-08-09] MEDS: ATORVASTATIN 20 MG TABLET PO SCH (20:49)
[2021-08-09] MEDS: hydrALAZINE HCL 20 MG/1 ML VIAL IV PRN (20:51)
[2021-08-09 21:00] VITALS: BP 168/70
--- NOTE | 2021-08-09 21:48 | NUR ---
Received phone call from Dr. Gonzales. He is aware of patient`s status. Patient complaint of severe pain at abdominal pain, patient`s daughter refused to give other pain medicine for patient except for Tylenol. Dr Gonzales ordered to keep patient NPO at midnight, continue current IVF, Morphine 2mg IV Q3 PRN, Lipase for labwork, and Ativan 0.25mg IV Q6PRN.
[2021-08-09] MEDS ORDERED: MORPHINE SULFATE 2 MG/1 ML DISP.SYRIN IV PRN (22:00)
[2021-08-09] MEDS ORDERED: LORAZEPAM 2 MG/1 ML VIAL IV PRN (22:00)
[2021-08-10 04:45] VITALS: BP 173/71
[2021-08-10] MEDS: LEVOTHYROXINE SODIUM 75 MCG TABLET PO SCH (05:58)
[2021-08-10] MEDS: IV D5 1/2 NS 1000 ML 1,000 ML IV PRN (06:13)
[2021-08-10 06:25] LABS: HEMATOCRIT 31.6 % (31.2-41.9); MEAN CORPUSCULAR HEMOGLOBIN 29.3 uug (24.7-32.8); MEAN CORPUSCULAR VOLUME 85.7 fL (75.5-95.3); PLATELET COUNT (AUTO) 211 K/uL (179-408)
[2021-08-10] MEDS: hydrALAZINE HCL 20 MG/1 ML VIAL IV PRN ×2 (06:35→20:11)
[2021-08-10 06:40] LABS: BILIRUBIN,TOTAL 3.8 mg/dL (0.2-1.0); CREATININE 0.8 mg/dL (0.6-1.3); PHOSPHOROUS 2.3 mg/dL (2.5-4.9); POTASSIUM 3.5 mmol/L (3.5-5.1); TOTAL PROTEIN, SERUM 5.7 g/dL (6.4-8.2)
--- NOTE | 2021-08-10 07:00 | NUR ---
Patient slept well, no complaint of pain until this morning. Patient in fair condition.
--- NOTE | 2021-08-10 07:35 | NUR ---
Received in bed awake and verbally responsive, dtr at bedside. No resp distress. Iv infusing as ordered. No ss of pain or sob. Safety measures in place. Cont to monitor. Addendum: 08/10/21 at 0741 by TAMAR SORIA RN sr on telemonitor.
--- NOTE | 2021-08-10 08:32 | NUR ---
pt with temp 99.4F. cooling measures initiated. per dr. guerline márquez to give oral meds
[2021-08-10] MEDS: ACETAMINOPHEN 325 MG TABLET PO PRN (08:33)
[2021-08-10] MEDS: DOCUSATE SODIUM 100 MG CAPSULE PO SCH ×2 (08:33→17:00)
[2021-08-10] MEDS: AMLODIPINE 5 MG TABLET PO SCH (08:34)
[2021-08-10] MEDS: ENOXAPARIN SODIUM 40 MG/0.4 ML DISP.SYRIN SQ SCH (08:35)
[2021-08-10] MEDS: MIRALAX 17 GM POWD.PACK PO SCH (08:36)
[2021-08-10] MEDS: ENSURE ENLIVE (VAN) 240 ML LIQUID PO SCH ×2 (08:36→17:10)
[2021-08-10] MEDS: REMEDY ESSENTIAL ZINC PASTE 113 GM TOP SCH (08:36)
[2021-08-10 12:31] VITALS: BP 116/59
--- NOTE | 2021-08-10 13:22 | NUR ---
contacted dr. tolliver if ok to change dressing on surgical site. waiting for call back.
--- NOTE | 2021-08-10 13:57 | NUR ---
per dr. tolliver ok to change dressing on surgical site.
--- NOTE | 2021-08-10 14:59 | NUR ---
changed dressing to left shoulder surgical site. no drainage/redness/swelling. no ss of infection noted.
--- NOTE | 2021-08-10 15:26 | NUR ---
Received call from [facility] from [facility] gave phone number [phone] Gonzales to give report to their accepting MD. Dr. Gonzales made aware.
[2021-08-10 16:01] VITALS: BP 143/60
[2021-08-10] MEDS ORDERED: SODIUM PHOSPHATE MM 15 MMOL in IV NORMAL SALINE 250 ML IV ONE (17:00)
[2021-08-10] MEDS ORDERED: AMLO-212 PO (17:16)
[2021-08-10] MEDS ORDERED: HYDR20VI4 IV (17:16)
[2021-08-10] MEDS ORDERED: DOCU-141 PO (17:16)
[2021-08-10] MEDS ORDERED: ACET325T53 PO (17:16)
[2021-08-10] MEDS ORDERED: POLY17PO4 PO (17:16)
[2021-08-10] MEDS ORDERED: ONDA4VIA23 IV (17:16)
[2021-08-10] MEDS ORDERED: LEVO75TA7 PO (17:16)
[2021-08-10] MEDS ORDERED: ZOLP5TAB2 PO (17:16)
[2021-08-10] MEDS ORDERED: ENOX40DI SQ (17:16)
--- NOTE | 2021-08-10 18:13 | NUR ---
Received call from [facility]. Patient will be going to Room 8823. RN to call [phone] for report prior to scrap picker. CM arranged for [facility]. No available acls unit. Dr. Christian romo for patient to go via bls. Spoke to Marcos olguin 7:30-8pm.
--- NOTE | 2021-08-10 19:07 | NUR ---
Called [facility] [phone] and gave report to Sharad KAUR. Room change- pt will be going to room 8804. Endorsed to oncoming nurse for continuty of care.
--- NOTE | 2021-08-10 20:11 | NUR ---
Pt given Apresoline 10mg Iv for 176/ . Pt given mophine 2mg prn for 8/10 pain scale on her left shoulder. Pt tolerated it well. Will continue to monitor.
[2021-08-10 20:15] VITALS: BP 124/51
--- NOTE | 2021-08-10 20:45 | NUR ---
Pt discharged and wheeled via gurney. Pt vital signs stable . Pt bp is 124/51. Pt pain subsided. IV midline intact and going with it. Granddaughter at bedside. Discharge instructions given. Belongings given .ID wristband taken off. Pt stable. Discharge papers given to Sam of ambulance unit 295.
[2021-08-12 03:06] LABS: HEPATITIS B SURFACE AG Negative (Negative)
[2021-08-12 03:06] LABS: HEPATITIS A AB, IgM Negative (Negative); HEPATITIS B SURFACE AG Negative (Negative)
== END 2021-08-10 20:45 | disposition short-term general hospital (02) | DRG 483 ==
LOC: ER 15:14 → MEDSURG3 18:05 → TELE3 08-03 14:27
PROVIDERS: ADMIT Internal Medicine; ATTEND Internal Medicine
PROC: 0RRK0J6 Replacement of Left Shoulder Joint with Synthetic Substitute, Humeral Surface, Open Approach (ICD-10-PCS; principal; 2021-08-03)
PROC: 0LQ20ZZ Repair Left Shoulder Tendon, Open Approach (ICD-10-PCS; 2021-08-03)
PROC: 05H533Z Insertion of Infusion Device into Right Subclavian Vein, Percutaneous Approach (ICD-10-PCS; 2021-08-09)
PROC: B546ZZA Ultrasonography of Right Subclavian Vein, Guidance (ICD-10-PCS; 2021-08-09)
DX: S42.252A Displaced fracture of greater tuberosity of left humerus, initial encounter for closed fracture (principal); E43 Unspecified severe protein-calorie malnutrition; K85.90 Acute pancreatitis without necrosis or infection, unspecified; S42.352A Displaced comminuted fracture of shaft of humerus, left arm, initial encounter for closed fracture; N39.0 Urinary tract infection, site not specified; D68.59 Other primary thrombophilia; W01.0XXA Fall on same level from slipping, tripping and stumbling without subsequent striking against object, initial encounter; Y92.89 Other specified places as the place of occurrence of the external cause; E86.0 Dehydration; Z20.822 Contact with and (suspected) exposure to COVID-19; D64.9 Anemia, unspecified; D69.6 Thrombocytopenia, unspecified; E66.9 Obesity, unspecified; E03.9 Hypothyroidism, unspecified; W19.XXXA Unspecified fall, initial encounter; Y93.9 Activity, unspecified; D75.1 Secondary polycythemia; I10 Essential (primary) hypertension; N83.209 Unspecified ovarian cyst, unspecified side; E28.8 Other ovarian dysfunction; E80.4 Gilbert syndrome; F41.9 Anxiety disorder, unspecified; Z74.09 Other reduced mobility; Z68.28 Body mass index [BMI] 28.0-28.9, adult; E80.6 Other disorders of bilirubin metabolism; R73.9 Hyperglycemia, unspecified; K83.8 Other specified diseases of biliary tract; R91.1 Solitary pulmonary nodule; E05.90 Thyrotoxicosis, unspecified without thyrotoxic crisis or storm; R00.1 Bradycardia, unspecified; M19.09 Primary osteoarthritis, other specified site
CPT/HCPCS: 36415; 71045; 73030; 73070; 73080; 73200; 74181; 76705; 83690; 83735; 84100; 84443; 84481; 85025; 85610; 85730; 86140; 86704; 86709; 86803; 86850; 86900; 86901; 86920; 87086; 87340; 87400; 87806; 93005; 93307; 97161; A4649; A4663; A6209; C1758; C1776; G0378; J0360; J0690; J0696; J0713; J1170; J1650; J2001; J2250; J2270; J2405; J2543; J2765; J3010; J3370; J3480; J3490